=== PATIENT | male | born 1965 | race Caucasian/White ===

== ENCOUNTER → 2021-01-29 14:51 | Outpatient (CLI) | payer OTHER, SELFPAY ==
--- NOTE | ~2021-01-29 | CT_ITS ---
EXAMINATION: CT abdomen pelvis w con DATE: 01/29/2021 15:27 INDICATION: Left lower quadrant abdominal pain. TECHNIQUE: Computed tomography (CT) of the abdomen and pelvis was performed with 100 mL Omnipaque 350 intravenous contrast. Automated exposure control and iterative reconstruction technique were employe d. The dose-length product was 1135.74 mGy-cm. COMPARISON: None. FINDINGS: The visualized portions of the lung bases demonstrate mild atelectasis. No pleural effusion . The heart size is normal. No pericardial effusion. The liver, gallbladder, spleen, pancreas, adrena l glands, and kidneys are normal. There is diverticulosis of the colon without evidence of diverticul itis. The appendix is normal. There are no dilated loops of bowel. There are no pathologically enlarg ed lymph nodes. There is no free intraperitoneal fluid. There are chronic bilateral L5 pars defects. There is 7 mm anterolisthesis of L5 on S1. There is severe lower lumbar spondylosis. IMPRESSION: 1. No etiology for the patient's symptoms. Reviewed, dictated and finalized at location B.
[2021-01-29 15:16] LABS: Estimated Glomerular Filt Rate > 60
== END ==
PROVIDERS: PCP Physician Assistant; Visit Provider Physician Assistant
DX: R10.32 Left lower quadrant pain (principal)
CPT/HCPCS: 74177; Q9967

== ENCOUNTER 2024-09-15 10:07 | Emergency (ER) | payer OTHER, SELFPAY ==
--- NOTE | ~2024-09-15 | XR_ITS ---
EXAMINATION: XR knee RT 3V DATE: 09/15/2024 10:35 INDICATION: Right knee pain and swelling. TECHNIQUE: 3 views of right knee were obtained. COMPARISON: None. FINDINGS: Alignment is normal. No fracture. There is mild tricompartmental osteoarthritis. There is a small knee joint effusion. IMPRESSION: 1. Mild right knee osteoarthritis. 2. Small right knee joint effusion. Reviewed, dictated and finalized at location A. STRIAL CLEANING TECHNICIAN
[2024-09-15 10:10] VITALS: BP 151/91; PULSE 88; RESP 16; TEMP 36.6; O2SAT 100
--- NOTE | 2024-09-15 11:42 | PC.NURSE ---
ice pack provided to the patient for his knee at this time.
--- NOTE | 2024-09-15 12:42 | ED_ITS ---
HPI - Extremity Injury (Lower) General Chief Complaint: Extremity Injury, Lower Stated Complaint: right knee pain, recent injury Time Seen by Provider: 09/15/24 12:17 History of Present Illness HPI Narrative: 58-year-old male presenting with right knee pain. He was working on his 's car last week when he heard a loud pop in his right knee. Since that time he has had progressively worsening pain and swelling. Has been using Tylenol and ibuprofen with minimal relief. No further complaints. Related Data Home Medications ?Medication ?Instructions ?Recorded ?Confirmed ?Last Taken ?Type amlodipine 5 mg tablet 5 mg PO DAILY 09/18/24 Unknown History eszopiclone 2 mg tablet (Lunesta) 2 mg PO QHS 09/18/24 Unknown History levothyroxine 75 mcg tablet 75 mcg PO DAILY 09/18/24 Unknown History lovastatin 40 mg tablet 40 mg PO DAILY 09/18/24 Unknown History Allergies Allergy/AdvReac Type Severity Reaction Status Date / Time No Known Allergies Allergy Unverified 09/18/24 12:44 Review of Systems Review of Systems: All systems reviewed & are unremarkable except as noted in HPI and below PMFSH Past Medical History Medical History (Updated 09/18/24 @ 14:01 by Ayad Yepez MD) Acute medial meniscus tear of right knee Surgical History Surgical History (Updated 09/18/24 @ 15:29 by Chelsea Rose CMA) History of shoulder surgery History of right knee surgery Family History Family History (Updated 09/18/24 @ 15:29 by Chelsea Rose CMA) Unknown Hypertension Social History Social History (Updated 09/18/24 @ 15:30 by Chelsea Rose CMA) Social History: caffeine use Smoking status: Former smoker Alcohol intake: never Substance use: never Occupation/Education: occupation 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 EYES: PERRLA and EOMI. ENT: grossly unremarkable NECK: Supple. CHEST: No respiratory distress. HEART: Regular rate and rhythm EXTREMITIES: R leg is swollen and diffusely tender though more so medially; neurovascularly intact SKIN: Warm, dry, no rash. NEURO: Alert and oriented x3. PSYCH: Normal mood and affect. Course Vital Signs Vital signs: Vital Signs Temperature 97.8 F 09/15/24 10:10 Pulse Rate 88 09/15/24 10:10 Respiratory Rate 16 09/15/24 10:10 Blood Pressure 151/91 H 09/15/24 10:10 Pulse Oximetry 100 09/15/24 10:10 Oxygen Delivery Room Air 09/15/24 10:10 Temperature 97.8 F 09/15/24 10:10 Pulse Rate 88 09/15/24 10:10 Respiratory Rate 16 09/15/24 10:10 Blood Pressure 151/91 H 09/15/24 10:10 Pulse Oximetry 100 09/15/24 10:10 Oxygen Delivery Room Air 09/15/24 10:10 MDM - Extremity Injury (Lower) MDM Narrative Medical decision making narrative: 58-year-old male presenting with right knee pain and swelling. Vitals are stable. Exam remarkable for the above. X-ray shows no acute osseous abnormalities. There is a joint effusion noted. Concerned that he has a ligamentous injury. Will place him in a knee immobilizer, provided crutches, some narcotics for pain control. Recommend close ortho follow-up. Appropriate return precautions given. Patient is agreeable this plan. Discharged in stable condition. Differential Diagnosis Differential diagnosis: Likely ankle sprain and strain, acute internal derangement of knee, fracture of femur and ankle fracture Medical Records Attestation: I reviewed the patient's medical records. Imaging Data Radiologist's impression: ITS Impressions Knee X-Ray 09/15/24 10:39 IMPRESSION: 1. Mild right knee osteoarthritis. 2. Small right knee joint effusion. Critical Care Time Critical Care Time Critical Care Time: No Discharge Plan Discharge Clinical Impression: Acute internal derangement of knee Patient Disposition: Home, Self-Care Condition: Stable Instructions: Antibiotic Form, Knee Pain (ED), Knee Immobilizer (ED) Additional Instructions: The x-ray today shows no broken bones but there is some fluid in your knee joint. We have placed you in a knee immobilizer and provided crutches to keep weight off of the affected knee. Please continue taking Tylenol and ibuprofen, you may supplement with the narcotics for severe pain. We recommend taking daily MiraLax to prevent constipation. Follow-up closely with orthopedic surgery at the number below. If your symptoms worsen or other concerning symptoms arise, please return to the ER. Patient Language: Indonesian Prescriptions: No Action lovastatin 40 mg tablet 40 mg PO DAILY levothyroxine 75 mcg tablet 75 mcg PO DAILY amlodipine 5 mg tablet 5 mg PO DAILY eszopiclone [Lunesta] 2 mg tablet 2 mg PO QHS hydrocodone-acetaminophen 5-325 mg tablet 1 tablet PO Q4-6H PRN (Reason: pain) Qty: 30 0RF Follow-up/Referrals: Ayad Yepez MD [Physician] - [facility],SHELBIE Loja [Primary Care Provider] - Stand Alone Forms: Work/School Release IP
[2024-09-15] MEDS: oxyCODONE HCL (*CRX) 5 MG TAB IR PO (13:00)
== END 2024-09-15 14:18 | disposition home or self-care (01) ==
PROVIDERS: Emergency Provider Emergency Medicine; PCP Physician Assistant
DX: M23.91 Unspecified internal derangement of right knee (principal); M17.11 Unilateral primary osteoarthritis, right knee
CPT/HCPCS: 73562; 99283; A9270

== ENCOUNTER 2024-10-06 08:47 | Outpatient (CLI) | payer OTHER, SELFPAY ==
--- NOTE | ~2024-10-06 | MR_ITS ---
MRI of the right knee Clinical history: Meniscus tear Technique: Coronal proton density and proton density-weighted images, sagittal proton-density and T2 fat-sat images, and axial proton-density fat-saturated images were acquired. Findings: Anterior and posterior cruciate ligaments are intact. Medial collateral ligament and the la teral collateral ligament complex are intact. Popliteus tendon is intact. There is complex tearing of the posterior horn and body medial meniscus. Lateral meniscus intact. There is high-grade chondromalacia the patellar apex with focal subchondral cystic change. There is f ocal moderate chondromalacia the medial femoral condyle. Extensor mechanism is intact. Minimal joint effusion present. [id number] Gutierrez's cyst present. . Impression: Complex tearing of the posterior horn and body of medial meniscus. 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 [id number] Gutierrez's cyst. Reviewed, dictated and finalized at [facility]. NT REPORTING ASSOCIATE Impression: Complex tearing of the posterior horn and body of medial meniscus. 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 [id number] Gutierrez's cyst.
== END 2024-10-06 08:48 | disposition home or self-care (01) ==
LOC: MICIMG 08:49
PROVIDERS: PCP Physician Assistant; Visit Provider Orthopaedic Surgery
DX: S83.231A Complex tear of medial meniscus, current injury, right knee, initial encounter (principal); M94.261 Chondromalacia, right knee; M71.21 Synovial cyst of popliteal space [Baker], right knee; X58.XXXA Exposure to other specified factors, initial encounter
CPT/HCPCS: 73721